=== PATIENT | male | born 1950 | race Caucasian/White ===

== ENCOUNTER 2019-12-22 02:25 | Emergency (ER) | payer BC ==
[~2019-12-22] VITALS: Ht 177.8 cm; Wt 74.8 kg
[2019-12-22 02:37] VITALS: BP_SYST 153
--- NOTE | 2019-12-22 02:37 | NUR ---
Placed in room 4 . Placed on patient monitor, blood pressure machine and pulse oximeter. To gown for exam. Side rails up.
--- NOTE | 2019-12-22 02:42 | NUR ---
YAMIL Rod at bedside examining patient.
--- NOTE | 2019-12-22 02:45 | NUR ---
Jose F gillespie in ED - 12/22/19 at 0301 by [email or web address] YAMIL Rod at bedside examining patient.
[2019-12-22] MEDS ORDERED: LIP40 PO (02:49)
[2019-12-22] MEDS ORDERED: LISI-209 PO (02:49)
[2019-12-22] MEDS ORDERED: ATEN-41 PO (02:49)
[2019-12-22] MEDS ORDERED: LEVO25TA7 PO (02:49)
--- NOTE | 2019-12-22 02:49 | NUR ---
Medication reconciliation completed with information provided by patient at bedside. Any prior medication reconciliation on file was reviewed and corrected.
[2019-12-22] MEDS ORDERED: IPRATROPIUM/ALBUTEROL SULFATE 3 ML AMPUL.NEB (DUONEB) INH ONE (03:00)
--- NOTE | 2019-12-22 03:00 | NUR ---
RT at bedside administering breathing treatment. Pt tolerated well.
[2019-12-22 03:05] LABS: EOSINOPHILS # (AUTO) 1.1 K/uL (0.0-0.4); HEMATOCRIT 46.6 % (36-54); HEMOGLOBIN 15.9 g/dL (14.0-18.0); MEAN CORPUSCULAR HEMOGLOBIN 31 pg (27-31)
[2019-12-22 03:10] LABS: BASOPHILS # (AUTO) 0.1 K/uL (0.0-0.2); BASOPHILS % (AUTO) 0.7 % (0.0-2.0); EOSINOPHILS % (AUTO) 13.7 % (0.0-4.0); LYMPHOCYTES % (AUTO) 11.6 % (20.5-51.5); MEAN CORPUSCULAR HGB CONC 34 % (32-36); MEAN CORPUSCULAR VOLUME 91 fL (79.0-98.0); MONOCYTES # (AUTO) 0.9 K/uL (0.0-1.0); MONOCYTES % (AUTO) 10.7 % (1.7-9.3); NEUTROPHILS # (AUTO) 5.2 K/uL (1.8-7.7); NEUTROPHILS % (AUTO) 63.3 % (40.0-70.0); RED BLOOD CELL COUNT(AUTO) 5.11 MIL/uL (4.2-6.2); RED CELL DISTRIBUTION WIDTH 13.2 % (9.0-15.0); WHITE BLOOD COUNT (AUTO) 8.2 K/uL (4.8-10.8)
[2019-12-22 03:20] LABS: ANION GAP 5 (5-15); CALCIUM 8.8 mg/dL (8.4-11.0); CHLORIDE 104 mmol/L (98-107); CREATININE 1.18 mg/dL (0.55-1.30); GLUCOSE 107 mg/dL (70-99); POTASSIUM 3.7 mmol/L (3.5-5.1); SODIUM SERUM 140 mmol/L (136-145); UREA NITROGEN, BLOOD 15 mg/dL (8-21)
[2019-12-22 03:35] LABS: ALANINE AMINOTRANSFERASE 31 U/L (12-78); ALBUMIN 3.7 g/dL (3.4-4.8); ASPARTATE AMINOTRANSFERASE 29 U/L (10-37); FREE T4 (FREE THYROXINE) 0.9 ng/dl (0.8-1.5); THYROID STIMULATING HORMONE 9.02 uIu/mL (0.36-3.74); TOTAL BILIRUBIN 0.6 mg/dL (0.0-1.0)
[2019-12-22 03:38] LABS: GFR AFRICAN AMERICAN 79 mL/min (>90)
[2019-12-22 03:40] LABS: PLATELET COUNT (AUTO) 86 K/uL (130-430)
[2019-12-22 03:56] VITALS: BP_SYST 140
--- NOTE | 2019-12-22 03:56 | NUR ---
Patient given written and verbal discharge instructions and verbalizes understanding. ER MD discussed with patient the results and treatment provided. Patient in stable condition. ID arm band removed. No Rx given. Patient educated on pain management and to follow up with PMD. Pain Scale 0. Opportunity for questions provided and answered. Medication side effect fact sheet provided.
== END 2019-12-22 03:56 | disposition home or self-care (01) ==
LOC: SED 02:25
DX: K21.9 Gastro-esophageal reflux disease without esophagitis (principal); R06.2 Wheezing; E03.9 Hypothyroidism, unspecified; R45.0 Nervousness; R91.1 Solitary pulmonary nodule; D69.6 Thrombocytopenia, unspecified; I10 Essential (primary) hypertension; E78.00 Pure hypercholesterolemia, unspecified; Z86.73 Personal history of transient ischemic attack (TIA), and cerebral infarction without residual deficits; Z79.899 Other long term (current) drug therapy
CPT/HCPCS: 36415; 71046-TC; 80053; 84439; 84443-TC; 84484; 85025; 93005; 94640; 99285

== ENCOUNTER 2024-04-27 06:49 | Inpatient (IN) | payer BC ==
[~2024-04-27] VITALS: Ht 177.8 cm; Wt 77.7 kg
[~2024-04-27 06:49] MED LIST: ATEN-41 PO; LEVO25TA7 PO; LIP40 PO; LISI-209 PO
[2024-04-27 06:52] VITALS: BP_SYST 98; PULSE 50; RESP 16; TEMP 97; O2SAT 98
[2024-04-27 08:19] LABS: BASOPHILS % (AUTO) 0.2 % (0.0-2.0); EOSINOPHILS # (AUTO) 0.7 K/uL (0.0-0.4); EOSINOPHILS % (AUTO) 5.8 % (0.0-4.0); HEMATOCRIT 40.2 % (36-54); HEMOGLOBIN 13.5 g/dL (14.0-18.0); LYMPHOCYTES # (AUTO) 1.1 K/uL (1.0-5.5); LYMPHOCYTES % (AUTO) 8.6 % (20.5-51.5); MEAN CORPUSCULAR HEMOGLOBIN 31 pg (27-31); MEAN CORPUSCULAR HGB CONC 34 % (32-36); MEAN CORPUSCULAR VOLUME 91 fL (79.0-98.0); MONOCYTES # (AUTO) 0.9 K/uL (0.0-1.0); NEUTROPHILS # (AUTO) 9.9 K/uL (1.8-7.7); NEUTROPHILS % (AUTO) 78.4 % (40.0-70.0); PLATELET COUNT (AUTO) 93 K/uL (130-430); RED BLOOD CELL COUNT(AUTO) 4.42 MIL/uL (4.2-6.2); RED CELL DISTRIBUTION WIDTH 12.7 % (9.0-15.0); WHITE BLOOD COUNT (AUTO) 12.7 K/uL (4.8-10.8)
[2024-04-27 08:20] LABS: INR 1.1 (0.80-1.20); PROTHROMBIN TIME 11.6 SECS (9.5-12.5)
[2024-04-27 08:50] LABS: ALANINE AMINOTRANSFERASE 20 U/L (12-78); ALBUMIN 3.1 g/dL (3.4-4.8); AMYLASE 52 U/L (0-100); ANION GAP 5 (5-15); ASPARTATE AMINOTRANSFERASE 15 U/L (10-37); BILIRUBIN,DIRECT 0.1 mg/dL (0.0-0.3); CALCIUM 8.7 mg/dL (8.4-11.0); CARBON DIOXIDE 29 mmol/L (23-29); CHLORIDE 108 mmol/L (98-107); CREATININE 1.39 mg/dL (0.55-1.30); GLUCOSE 146 mg/dL (74-106); LIPASE 45 U/L (16-77); POTASSIUM 4.9 mmol/L (3.5-5.1); SODIUM SERUM 142 mmol/L (136-145); TOTAL BILIRUBIN 0.5 mg/dL (0.0-1.0); UREA NITROGEN, BLOOD 40 mg/dL (8-21)
[2024-04-27] MEDS: PANTOPRAZOLE SODIUM 40 MG/VIAL (PROTONIX) IVP ONE (10:49)
[2024-04-27 12:00] VITALS: BP_SYST 109; PULSE 58; RESP 16; TEMP 97; O2SAT 100
[2024-04-27 12:14] VITALS: BP_SYST 109; PULSE 16; PULSE 58; RESP 16; TEMP 97; O2SAT 100
[2024-04-27] MEDS ORDERED: ALBMDI INH (12:57)
[2024-04-27] MEDS ORDERED: ACETAMINOPHEN 325 MG TABLET PO PRN (15:00)
[2024-04-27] MEDS ORDERED: traMADol HCL HCL 50 MG TABLET (ULTRAM) PO PRN (15:00)
[2024-04-27] MEDS ORDERED: ZOLPIDEM TARTRATE 5 MG TABLET PO PRN (15:00)
[2024-04-27] MEDS ORDERED: ALBUTEROL SULFATE 0.083% 2.5 MG/3 ML VIAL.NEB INH PRN (15:00)
[2024-04-27] MEDS ORDERED: ONDANSETRON HCL 4 MG/2 ML VIAL IVP PRN (15:00)
[2024-04-27 15:12] VITALS: PULSE 55; O2SAT 97
[2024-04-27 15:12] LABS: BASOPHILS % (AUTO) 0.2 % (0.0-2.0); EOSINOPHILS % (AUTO) 0.2 % (0.0-4.0); HEMATOCRIT 38.8 % (36-54); HEMOGLOBIN 13.7 g/dL (14.0-18.0); LYMPHOCYTES # (AUTO) 0.7 K/uL (1.0-5.5); LYMPHOCYTES % (AUTO) 5.1 % (20.5-51.5); MEAN CORPUSCULAR HEMOGLOBIN 32 pg (27-31); MEAN CORPUSCULAR HGB CONC 35 % (32-36); MEAN CORPUSCULAR VOLUME 90 fL (79.0-98.0); MONOCYTES # (AUTO) 0.9 K/uL (0.0-1.0); NEUTROPHILS # (AUTO) 11.3 K/uL (1.8-7.7); NEUTROPHILS % (AUTO) 87.5 % (40.0-70.0); PLATELET COUNT (AUTO) 91 K/uL (130-430); RED CELL DISTRIBUTION WIDTH 12.9 % (9.0-15.0); WHITE BLOOD COUNT (AUTO) 12.9 K/uL (4.8-10.8)
[2024-04-27 15:27] LABS: ANION GAP 3 (5-15); CALCIUM 8.8 mg/dL (8.4-11.0); CARBON DIOXIDE 31 mmol/L (23-29); CHLORIDE 106 mmol/L (98-107); CREATININE 1.33 mg/dL (0.55-1.30); GLUCOSE 137 mg/dL (74-106); POTASSIUM 4.9 mmol/L (3.5-5.1); SODIUM SERUM 140 mmol/L (136-145); UREA NITROGEN, BLOOD 38 mg/dL (8-21)
[2024-04-27] MEDS: 0.45% NS 500 ML IV ONE (15:32)
[2024-04-27] MEDS: MIDAZOLAM HCL 5 MG/5 ML VIAL ONE (16:28)
[2024-04-27] MEDS: fentaNYL CITRATE/PF 100 MCG/2 ML AMP ONE (16:28)
[2024-04-27] MEDS: PANTOPRAZOLE SODIUM 40 MG in NS 50 ML IV SCH (17:25)
[2024-04-27] MEDS: BENZOCAINE 20% 0.5mL UD SPRAY MM ONE (18:02)
[2024-04-27] MEDS: SIMETHICONE 40 MG/0.6 ML ML ONE (18:02)
[2024-04-27 19:00] VITALS: BP_SYST 101; PULSE 56; RESP 16; TEMP 97.7; O2SAT 98
[2024-04-27 20:00] VITALS: BP_SYST 101; PULSE 56; RESP 16; TEMP 97.7; O2SAT 98
[2024-04-28 00:17] VITALS: BP_SYST 95; PULSE 57; RESP 16; TEMP 97.8; O2SAT 100
[2024-04-28 05:12] LABS: BASOPHILS % (AUTO) 0.1 % (0.0-2.0); EOSINOPHILS # (AUTO) 0.3 K/uL (0.0-0.4); EOSINOPHILS % (AUTO) 3.3 % (0.0-4.0); HEMATOCRIT 35.7 % (36-54); HEMOGLOBIN 12.3 g/dL (14.0-18.0); LYMPHOCYTES # (AUTO) 1.1 K/uL (1.0-5.5); LYMPHOCYTES % (AUTO) 11.1 % (20.5-51.5); MEAN CORPUSCULAR HEMOGLOBIN 31 pg (27-31); MEAN CORPUSCULAR HGB CONC 34 % (32-36); MEAN CORPUSCULAR VOLUME 91 fL (79.0-98.0); MONOCYTES # (AUTO) 0.9 K/uL (0.0-1.0); MONOCYTES % (AUTO) 8.3 % (1.7-9.3); NEUTROPHILS % (AUTO) 77.2 % (40.0-70.0); PLATELET COUNT (AUTO) 82 K/uL (130-430); RED BLOOD CELL COUNT(AUTO) 3.92 MIL/uL (4.2-6.2); WHITE BLOOD COUNT (AUTO) 10.4 K/uL (4.8-10.8)
[2024-04-28 05:50] LABS: ALANINE AMINOTRANSFERASE 19 U/L (12-78); ALBUMIN 3.1 g/dL (3.4-4.8); ANION GAP 2 (5-15); ASPARTATE AMINOTRANSFERASE 15 U/L (10-37); CALCIUM 8.3 mg/dL (8.4-11.0); CARBON DIOXIDE 30 mmol/L (23-29); CHLORIDE 108 mmol/L (98-107); CREATININE 1.25 mg/dL (0.55-1.30); GLUCOSE 86 mg/dL (74-106); POTASSIUM 4.4 mmol/L (3.5-5.1); SODIUM SERUM 140 mmol/L (136-145); TOTAL BILIRUBIN 0.7 mg/dL (0.0-1.0); TOTAL PROTEIN, SERUM 5.9 g/dL (6.4-8.3); UREA NITROGEN, BLOOD 30 mg/dL (8-21)
[2024-04-28] MEDS: SUCRALFATE 1 GM TABLET PO SCH (06:15)
[2024-04-28 08:05] VITALS: BP_SYST 110; PULSE 66; RESP 18; TEMP 98.2; O2SAT 99
[2024-04-28] MEDS: ATORVASTATIN 20 MG TABLET PO SCH (08:22)
[2024-04-28] MEDS: ATENOLOL 25 MG TABLET(TENORMIN) PO SCH (08:22)
[2024-04-28] MEDS: LEVOTHYROXINE SODIUM 0.025 MG TABLET PO SCH (08:22)
[2024-04-28] MEDS ORDERED: SUCR1TAB2 PO (12:36)
[2024-04-28] MEDS ORDERED: PRO40 PO (12:36)
[2024-04-28] MEDS ORDERED: DOCU250C14 PO (12:37)
[2024-04-28 12:59] VITALS: BP_SYST 112; PULSE 72; RESP 17; TEMP 98.1; O2SAT 98
[2024-04-28 16:34] VITALS: BP_SYST 113; PULSE 77; RESP 18; TEMP 97.6; O2SAT 99
[2024-04-28] MEDS: MILK OF MAGNESIA 30 ML UDC PO ONE (16:52)
[2024-04-28 19:27] VITALS: BP_SYST 120; PULSE 63; RESP 18; TEMP 98.9; O2SAT 98
== END 2024-04-28 19:59 | disposition home or self-care (01) | DRG 377 ==
LOC: SED 06:49 → STU 10:10
PROVIDERS: ADMIT Internal Medicine; ATTEND Internal Medicine
PROC: 0DB68ZX Excision of Stomach, Via Natural or Artificial Opening Endoscopic, Diagnostic (ICD-10-PCS; 2024-04-27)
PROC: 0DB58ZX Excision of Esophagus, Via Natural or Artificial Opening Endoscopic, Diagnostic (ICD-10-PCS; principal; 2024-04-27 16:00)
DX: K25.4 Chronic or unspecified gastric ulcer with hemorrhage (principal); K20.91 Esophagitis, unspecified with bleeding; D62 Acute posthemorrhagic anemia; E44.1 Mild protein-calorie malnutrition; I10 Essential (primary) hypertension; I25.10 Atherosclerotic heart disease of native coronary artery without angina pectoris; K21.9 Gastro-esophageal reflux disease without esophagitis; E78.5 Hyperlipidemia, unspecified; E03.9 Hypothyroidism, unspecified; N20.0 Calculus of kidney; N40.0 Benign prostatic hyperplasia without lower urinary tract symptoms; K44.9 Diaphragmatic hernia without obstruction or gangrene; Z79.899 Other long term (current) drug therapy; Z68.24 Body mass index [BMI] 24.0-24.9, adult; K57.30 Diverticulosis of large intestine without perforation or abscess without bleeding
CPT/HCPCS: 36415; 43239; 71045; 80048; 80053; 80076; 82150; 83605; 83690; 85025; 85610; 85730; 86886; 86900; 86901; 88305; 88312; 88313; 93005; 94070; 96374; 99285; G0378; J2250; J2470; J3010